=== PATIENT | female | born 1985 | race Two or more races ===

== ENCOUNTER 2022-06-17 18:42 | Emergency (ER) | payer OTHER ==
[~2022-06-17] VITALS: Ht 175.3 cm; Wt 70.0 kg
[2022-06-17 20:02] VITALS: BP 125/81
== END 2022-06-17 20:38 | disposition home or self-care (01) ==
LOC: ER 18:42
DX: S46.912A Strain of unspecified muscle, fascia and tendon at shoulder and upper arm level, left arm, initial encounter (principal); F17.210 Nicotine dependence, cigarettes, uncomplicated; Z90.49 Acquired absence of other specified parts of digestive tract; X50.1XXA Overexertion from prolonged static or awkward postures, initial encounter; Y93.89 Activity, other specified; Y92.89 Other specified places as the place of occurrence of the external cause; Y99.0 Civilian activity done for income or pay
CPT/HCPCS: 73030; 73060

== ENCOUNTER 2024-02-15 19:59 | Emergency (ER) | payer OTHER ==
[~2024-02-15] VITALS: Ht 175.3 cm; Wt 72.8 kg
[2024-02-15] MEDS ORDERED: ACET500T58 PO (20:28)
[2024-02-15 21:15] VITALS: BP 117/80; PULSE 101; RESP 18; TEMP 98.3; O2SAT 98
== END 2024-02-15 21:26 | disposition home or self-care (01) ==
LOC: ER 19:59
DX: S90.31XA Contusion of right foot, initial encounter (principal); F17.210 Nicotine dependence, cigarettes, uncomplicated; Z90.49 Acquired absence of other specified parts of digestive tract; X58.XXXA Exposure to other specified factors, initial encounter; Y93.89 Activity, other specified; Y92.89 Other specified places as the place of occurrence of the external cause; Y99.8 Other external cause status
CPT/HCPCS: 73630